=== PATIENT | male | born 2000 | race African-American/Black ===

== ENCOUNTER 2018-07-03 11:28 | Emergency (ER) | payer OTHER ==
[2018-07-03 11:58] VITALS: Ht 182.9 cm
[2018-07-03 13:37] VITALS: BP 134/88
== END 2018-07-03 13:37 | disposition home or self-care (01) ==
LOC: ED 11:28
DX: J02.9 Acute pharyngitis, unspecified (principal)

== ENCOUNTER 2020-06-24 21:24 | Emergency (ER) | payer BC ==
[~2020-06-24] VITALS: Ht 190.5 cm; Wt 96.2 kg
[2020-06-24 21:32] VITALS: Ht 190.5 cm; Wt 96.2 kg
[2020-06-24 23:20] LABS: BASOPHIL % 0.5 % (0-2); PLATELET COUNT 255 x10^3mcL (130-400)
[2020-06-24 23:32] LABS: CARBON DIOXIDE 31.2 mmol/L (21-32); CHLORIDE SERUM 99 mmol/L (98-107); CREATININE SERUM 1.1 mg/dL (0.7-1.3); GFR1 > 60 mL/min; GLUCOSE SERUM 93 mg/dL (74-106); POTASSIUM SERUM 3.9 mmol/L (3.5-5.1); SODIUM SERUM 133 mmol/L (136-145)
[2020-06-24 23:37] LABS: ALBUMIN 4.4 g/dL (3.4-5.0); ALKALINE PHOSPHATASE 47 U/L (46-116); ALT/SGPT 39 U/L (16-63); AST/SGOT 27 U/L (15-37); BILIRUBIN TOTAL 0.6 mg/dL (0.20-1.00); LIPASE 76 IU/L (73-393); TOTAL PROTEIN, SERUM 7.9 g/dL (6.4-8.2)
[2020-06-24 23:50] VITALS: BP 130/73
== END 2020-06-24 23:59 | disposition home or self-care (01) ==
LOC: ED 21:24
PROVIDERS: Emergency Medicine
DX: K29.70 Gastritis, unspecified, without bleeding (principal)
CPT/HCPCS: J2405